=== PATIENT | male | born 1970 | race American Indian/Alaskan Native ===

== ENCOUNTER 2020-11-16 10:34 | Emergency (ER) | payer BC ==
--- NOTE | 2020-11-16 11:38 | Emergency Department Report ---
ED General Adult HPI - General Chief complaint: Abdominal Pain Stated complaint: ABD PAIN Time Seen by Provider: 11/16/20 11:14 Source: patient Mode of arrival: Ambulatory Limitations: No Limitations - History of Present Illness Initial comments: Patient is a 49-year-old male presents emergency room complaints of constipation that began 2 weeks ago. He states he has tried MiraLAX and magnesium citrate. He states last night he attempted to do an enema but was unable. He states he is concerned he may have a fecal impaction. He states intermittently he has abdominal discomfort and back discomfort. He denies any fever, nausea, vomiting, hematochezia, melena. He has not yet had a colonoscopy. He has a past medical history of DM, HTN, asthma. he reports an allergy to penicillin. Severity scale (0 -10): 5 - Related Data Previous Rx's Medication Instructions Recorded Last Taken Type Docusate Sodium [Colace] 100 mg PO BID PRN #20 capsule 11/16/20 Unknown Rx Glycerin Adult 2 gm 2 gm AK ONCE PRN #8 supp.rect 11/16/20 Unknown Rx Allergies Allergy/AdvReac Type Severity Reaction Status Date / Time No Known Allergies Allergy Unverified 11/16/20 11:01 ED Review of Systems ROS: Stated complaint: ABD PAIN Other details as noted in HPI Comment: All other systems reviewed and negative ED Past Medical Hx - Medications Home Medications: Home Medications Medication Instructions Recorded Confirmed Last Taken Type Docusate Sodium [Colace] 100 mg PO BID PRN #20 capsule 11/16/20 Unknown Rx Glycerin Adult 2 gm 2 gm AK ONCE PRN #8 supp.rect 11/16/20 Unknown Rx ED Physical Exam - General Limitations: No Limitations General appearance: alert, in no apparent distress - Head Head exam: Present: atraumatic, normocephalic - Eye Eye exam: Present: normal appearance - ENT ENT exam: Present: mucous membranes moist - Respiratory Respiratory exam: Present: normal lung sounds bilaterally. Absent: respiratory distress, wheezes, rales, rhonchi, stridor, chest wall tenderness, accessory muscle use, decreased breath sounds, prolonged expiratory - Cardiovascular Cardiovascular Exam: Present: regular rate, normal rhythm, normal heart sounds. Absent: systolic murmur, diastolic murmur, rubs, gallop - GI/Abdominal GI/Abdominal exam: Present: soft, normal bowel sounds. Absent: distended, tenderness, guarding, rebound, rigid - Neurological Exam Neurological exam: Present: alert, oriented X3 - Psychiatric Psychiatric exam: Present: normal affect, normal mood - Skin Skin exam: Present: warm, dry, intact ED Course Vital Signs 11/16/20 11/16/20 10:58 15:52 Temperature 98.2 F Pulse Rate 97 H 86 Respiratory 16 18 Rate Blood Pressure 155/99 140/82 [Left] O2 Sat by Pulse 98 98 Oximetry ED Medical Decision Making - Lab Data Result diagrams: 11/16/20 12:32 11/16/20 12:32 - Radiology Data Radiology results: report reviewed Ordering Physician: RAMONE NGUYEN Date of Service: 11/16/20 Procedure(s): XR abdomen 2V Accession Number(s): [id number] cc: RAMONE NGUYEN Fluoro Time In Minutes: ABDOMEN 2 VIEW(S) INDICATION / CLINICAL INFORMATION: constipation x 2 weeks. COMPARISON: None available. FINDINGS: TUBES / LINES: None. BOWEL GAS PATTERN: No significant abnormality. There is normal stool in the colon. No constipation. FREE AIR / EXTRALUMINAL GAS: None seen. ADDITIONAL FINDINGS: No significant additional findings. IMPRESSION: No significant abnormality. Signer Name: Zheng Gurrola Jr, MD Signed: 11/16/2020 11:54 AM Workstation Name: [id number] Transcribed By: TTR Dictated By: ZHENG GURROLA JR, MD Electronically Authenticated By: ZHENG GURROLA JR, MD Signed Date/Time: 11/16/20 1154 DD/ 1154 TD/TT: Ordering Physician: RAMONE NGUYEN Date of Service: 11/16/20 Procedure(s): CT abdomen pelvis w con Accession Number(s): [id number] cc: RAMONE NGUYEN CT abdomen pelvis w con INDICATION: abd pain, back pain, changes in bowel habits OMNI 350 100 ML. COMPARISON: None TECHNIQUE: Abdominal and pelvic CT exam performed. All CT scans at this location are performed using CT dose reduction for ALARA by means of automated exposure control. FINDINGS: CT ABDOMEN and PELVIS: Lung Bases: No significant abnormality. Liver: No significant abnormality. Biliary: No significant abnormality. Spleen: No significant abnormality. Pancreas: No significant abnormality. Adrenals: No significant abnormality. Kidneys: No significant abnormality. Small area of focal fat seen in the patella pancreas. 1.5 cm left lower pole hypoattenuating lesion with indeterminate Hounsfield units. Subcentimeter right interpolar hypoattenuating lesion which is most likely a cyst but is too small to completely catheterize. Lymphatics: No lymphadenopathy. Vasculature: No significant abnormality. Bowel: No significant abnormality. Pelvis: No significant abnormality. Osseous Structures: Sclerosis in the left 9th lateral rib. No aggressive osseous lesion. There is a lucent lesion in the proximal right femur with sclerotic rim. . Additional Findings: None IMPRESSION: 1. No acute abnormality in the abdomen or pelvis. 2. Indeterminate 1.5 cm left lower pole renal lesion is most likely a cyst. However, Hounsfield units are indeterminate. Recommend a CT multiphase renal protocol for further evaluation. 3. 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 Can obtain follow up radiograph in 3 months. Signer Name: Nadeem Johnson MD Signed: 11/16/2020 3:00 PM Workstation Name: [id number] Transcribed By: CS Dictated By: Nadeem Johnson MD Electronically Authenticated By: Nadeem Johnson MD Signed Date/Time: 11/16/201499 DD/ 144 TD/TT: - Medical Decision Making Patient is a 49-year-old male presents emergency room complaints of constipation that began 2 weeks ago. He states he has tried MiraLAX and magnesium citrate. He states last night he attempted to do an enema but was unable. He states he is concerned he may have a fecal impaction. He states intermittently he has ab dominal discomfort and back discomfort. He denies any fever, nausea, vomiting, hematochezia, melena. He has not yet had a colonoscopy. He has a past medical history of DM, HTN, asthma. he reports an allergy to penicillin. Vitals are stable. No abdominal tenderness on exam, no guarding, no rebound, no rigidity, normal pulses, no peritoneal signs. X-ray abdomen: No significant abnormality. Due to abdominal pain, lower back pain with change in bowel habits, and no bowel movement for 2 weeks, CT abdomen pelvis ordered to rule out large mass or obstruction. CT abdomen pelvis with IV contrast: 1. No acute abnormality in the abdomen or pelvis. 2. Indeterminate 1.5 cm left lower pole renal lesion is most likely a cyst. However, Hounsfield units are indeterminate. Recommend a CT multiphase renal protocol for further evaluation. 3. 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 Can obtain follow up radiograph in 3 months. Labs are stable. Discussed all results with patient answer questions. Patient given lactulose and was able to have a bowel movement. Discussed the importance of outpatient GI follow-up as patient likely needs outpatient colonoscopy. Patient will be referred to n ephrology due to renal lesion. Discussed lesion of femur and that he could follow-up outpatient primary care to have repeat x-ray in 3 months. Patient given prescription for medications. Advised patient Please increase your fluid intake. Eat a high-fiber diet. Use medication as prescribed. Follow-up with your primary care doctor. Follow-up with a aerial tram operator regarding the kidney lesion. Follow-up with a GI doctor as you will likely need outpatient colonoscopy. Return to emergency room for any new or worsening symptoms. Critical care attestation.: If time is entered above; I have spent that time in minutes in the direct care of this critically ill patient, excluding procedure time. ED Disposition Clinical Impression: Renal lesion, Lesion of femur Abdominal pain Qualifiers: Abdominal location: generalized Qualified Code(s): R10.84 - Generalized abdominal pain Back pain Qualifiers: Back pain location: back pain in unspecified location Chronicity: acute Back pain laterality: unspecified Qualified Code(s): M54.9 - Dorsalgia, unspecified Constipation Qualifiers: Constipation type: unspecified constipation type Qualified Code(s): K59.00 - Constipation, unspecified Disposition: 01 HOME / SELF CARE / HOMELESS Is pt being admited?: No Does the pt Need Aspirin: No Condition: Stable Instructions: Constipation, Adult Additional Instructions: Please increase your fluid intake. Eat a high-fiber diet. Use medication as prescribed. Follow-up with your primary care doctor. Follow-up with a aerial tram operator regarding the kidney lesion. Follow-up with a GI doctor as you will likely need outpatient colonoscopy. Return to emergency room for any new or worsening symptoms. Prescriptions: Docusate Sodium [Colace] 100 mg PO BID PRN #20 capsule PRN Reason: constipation Glycerin Adult 2 gm 2 gm AK ONCE PRN #8 supp.rect PRN Reason: constipation Referrals: [facility] [Provider Group] - 2-3 Days PRIMARY CARE, [Primary Care Provider] - 2-3 Days SRINIVASA GIORDANO MD [Staff Physician] - 2-3 Days Time of Disposition: 15:19 Print Language: CROATIAN
--- NOTE | 2020-11-16 11:59 | XRay Report ---
ABDOMEN 2 VIEW(S) INDICATION / CLINICAL INFORMATION: constipation x 2 weeks. COMPARISON: None available. FINDINGS: TUBES / LINES: None. BOWEL GAS PATTERN: No significant abnormality. There is normal stool in the colon. No constipation. FREE AIR / EXTRALUMINAL GAS: None seen. ADDITIONAL FINDINGS: No significant additional findings. IMPRESSION: No significant abnormality. Signer Name: Zheng Gurrola Jr, MD Signed: 11/16/2020 11:54 AM Workstation Name: [id number]
[2020-11-16] MEDS ORDERED: GLYCERIN ADULT 2 GRAM RECT SUPP PR ONE (13:08)
[2020-11-16] MEDS ORDERED: LACTULOSE 20 GM/30 ML ORAL LIQD PO ONE (13:09)
[2020-11-16 13:18] LABS: Basophils # (Auto) 0.1 K/mm3 (0.0-0.1); Basophils % (Auto) 1.2 % (0.0-1.8); Eosinophils # (Auto) 0.3 K/mm3 (0.0-0.4); Eosinophils % (Auto) 5.6 % (0.0-4.3); Hematocrit 45.8 % (35.5-45.6); Hemoglobin 15.4 gm/dl (11.8-15.2); Lymphocytes # (Auto) 2.2 K/mm3 (1.2-5.4); Lymphocytes % (Auto) 44.3 % (13.4-35.0); Mean Corpuscular HGB Conc 34 % (32-34); Mean Corpuscular Volume 80 fl (84-94); Monocytes # (Auto) 0.2 K/mm3 (0.0-0.8); Monocytes % (Auto) 4.9 % (0.0-7.3); Platelet Count 305 K/mm3 (140-440); Red Cell Distribution Width 14.4 % (13.2-15.2)
[2020-11-16 13:38] LABS: Alanine Aminotransferase 27 units/L (7-56); Albumin 4.4 g/dL (3.9-5); BUN/Creatinine Ratio 14; Blood Urea Nitrogen 13 mg/dL (9-20); Calcium 9.5 mg/dL (8.4-10.2); Hemolysis Index 8
--- NOTE | 2020-11-16 15:04 | Cat Scan Report ---
CT abdomen pelvis w con INDICATION: abd pain, back pain, changes in bowel habits OMNI 350 100 ML. COMPARISON: None TECHNIQUE: Abdominal and pelvic CT exam performed. All CT scans at this location are performed using CT dose reduction for ALARA by means of automated exposure control. FINDINGS: CT ABDOMEN and PELVIS: Lung Bases: No significant abnormality. Liver: No significant abnormality. Biliary: No significant abnormality. Spleen: No significant abnormality. Pancreas: No significant abnormality. Adrenals: No significant abnormality. Kidneys: No significant abnormality. Small area of focal fat seen in the patella pancreas. 1.5 cm lef t lower pole hypoattenuating lesion with indeterminate Hounsfield units. Subcentimeter right interpol ar hypoattenuating lesion which is most likely a cyst but is too small to completely catheterize. Lymphatics: No lymphadenopathy. Vasculature: No significant abnormality. Bowel: No significant abnormality. Pelvis: No significant abnormality. Osseous Structures: Sclerosis in the left 9th lateral rib. No aggressive osseous lesion. There is a lucent lesion in the proximal right femur with sclerotic rim. . Additional Findings: None IMPRESSION: 1. No acute abnormality in the abdomen or pelvis. 2. Indeterminate 1.5 cm left lower pole renal lesion is most likely a cyst. However, Hounsfield units are indeterminate. Recommend a CT multiphase renal protocol for further evaluation. 3. 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 Can obtain follow up radiograph in 3 months. Signer Name: Nadeem Johnson MD Signed: 11/16/2020 3:00 PM Workstation Name: [id number]
[2020-11-16 15:53] VITALS: BP 140/82
== END 2020-11-16 15:52 | disposition home or self-care (01) ==
LOC: ED 10:34
DX: N28.9 Disorder of kidney and ureter, unspecified (principal); L98.9 Disorder of the skin and subcutaneous tissue, unspecified; K59.00 Constipation, unspecified; M54.9 Dorsalgia, unspecified; Z79.899 Other long term (current) drug therapy
CPT/HCPCS: 36415; 74019; 74177; 80053; 83690; 85025; 99284; Q9967